=== PATIENT | male | born 1990 | race Caucasian/White ===

== ENCOUNTER 2023-08-15 00:05 | Emergency (ER) | payer OTHER ==
[~2023-08-15] VITALS: Ht 188 cm; Wt 83.9 kg
[2023-08-15] MEDS ORDERED: VOLTAREN75 MG PO (03:14)
[2023-08-15] MEDS ORDERED: TRAMADOL HCL50 MG PO ×2 (03:14→03:15)
[2023-08-15] MEDS ORDERED: VOLTAREN - GENE75 MG PO (03:15)
[2023-08-15 03:20] VITALS: BP 124/75
== END 2023-08-15 03:25 | disposition home or self-care (01) ==
LOC: ED 00:05
DX: S20.312A Abrasion of left front wall of thorax, initial encounter (principal); S20.212A Contusion of left front wall of thorax, initial encounter; W01.198A Fall on same level from slipping, tripping and stumbling with subsequent striking against other object, initial encounter